=== PATIENT | female | born 1960 | race Two or more races ===

== ENCOUNTER 2021-10-13 10:18 | Emergency (ER) | payer OTHER ==
[~2021-10-13] VITALS: Ht 149.9 cm; Wt 61.2 kg
[~2021-10-13 10:18] MED LIST: COZAAR25 MG; TOPROL XL25 M1
[2021-10-13] MEDS ORDERED: DICLOFENAC POTA50 MG PO (14:56)
[2021-10-13] MEDS ORDERED: PEPCID AC20 MG PO (14:56)
== END 2021-10-13 15:08 ==
LOC: ER 10:18
DX: K65.4 Sclerosing mesenteritis (principal); N39.0 Urinary tract infection, site not specified; R10.32 Left lower quadrant pain